=== PATIENT | female | born 1975 | race Caucasian/White ===

== ENCOUNTER 2021-10-10 10:55 | Emergency (ER) | payer MEDICARE ==
--- NOTE | 2021-10-10 11:07 | ERPHSYRPT ---
- History of Present Illness Time Seen by Provider: 10/10/21 11:07 Source: patient Exam Limitations: no limitations Physician History: This is a 46-year-old right-handed white female who accidentally cut herself while cutting licorice prior to arrival. Patient is diabetic. Patient has multiple medical problems. Patient arrives mild oozing from the laceration site. Timing/Duration: today Quality: burning, painful Severity: mild Location: hands (Right index finger) Possible Causes: other (Accidental laceration) Allergies/Adverse Reactions: Iodine and Iodide Containing Produc Allergy (Verified 10/10/21 11:28) latex Allergy (Verified 10/10/21 11:28) Penicillins Allergy (Verified 10/10/21 11:28) Home Medications: Fludrocortisone Acetate 0.1 mg PO DAILY 10/10/21 [History] Gabapentin [Neurontin] 1 ea TID 10/10/21 [History] Insulin Aspart [Insulin Aspart Penfill] 1 ea ACHS 10/10/21 [History] Pantoprazole Sodium [Protonix] 40 mg PO DAILY 10/10/21 [History] Vit E/B1/B6/FA/B12/Ala/Coq10 [Folic-K Capsule] 1 ea DAILY 10/10/21 [History] Vit E/B1/B6/FA/B12/Ala/Coq10 [Folic-K Capsule] 1 ea DAILY 10/10/21 [History] fentaNYL [Fentanyl] 1 ea UD 10/10/21 [History] Travel Risk - International Travel Have you traveled outside of the country in past 3 weeks: No - Coronavirus Screening Are you exhibiting any of the following symptoms?: No Close contact with a COVID-19 positive Pt in past 14-21 Days: No - Review of Systems Constitutional: No Symptoms Eyes: No Symptoms Ears, Nose, & Throat: No Symptoms Respiratory: No Symptoms Cardiac: No Symptoms Abdominal/Gastrointestinal: No Symptoms Genitourinary Symptoms: No Symptoms Musculoskeletal: No Symptoms Skin: Other (Laceration palmar aspect left index finger) Neurological: No Symptoms Psychological: No Symptoms Endocrine: No Symptoms Hematologic/Lymphatic: No Symptoms Immunological/Allergic: No Symptoms All Other Systems: Reviewed and Negative - Past Medical History Pertinent Past Medical History: Yes - Past Surgical History Past Surgical History: Yes - Nursing Vital Signs Nursing Vital Signs: Initial Vital Signs Temperature 98.0 F 10/10/21 11:14 Pulse Rate 91 H 10/10/21 11:14 Respiratory Rate 18 10/10/21 11:14 Blood Pressure 140/88 10/10/21 11:14 O2 Sat by Pulse Oximetry 98 10/10/21 11:14 Pain Scale Pain Intensity 0 - Physical Exam General Appearance: no apparent distress, alert, anxiety Eye Exam: PERRL/EOMI, eyes nml inspection Ears, Nose, Throat Exam: normal ENT inspection, moist mucous membranes Neck Exam: normal inspection, non-tender, supple Respiratory Exam: airway intact, No chest tenderness, No respiratory distress Gastrointestinal/Abdomen Exam: No tenderness Pelvic Exam: not done Rectal Exam: not done Back Exam: normal inspection, normal range of motion, No CVA tenderness, No vertebral tenderness Extremity Exam: normal range of motion, pelvis stable, lacerations (Left index finger 1 cm mild ooze from skin edge), other (Tendon intact neurovascularly intact) Neurologic Exam: alert, oriented x 3, cooperative, general operator II-XII nml as tested, normal mood/affect, nml cerebellar function, nml station & gait, sensation nml Skin Exam: laceration (See above) Lymphatic Exam: No adenopathy SpO2 Interpretation: normal O2 Delivery: Room Air Procedures - Laceration/Wound Repair Left Volar Finger Time of Procedure: 11:40 Wound Location: Left, hand (Palmar aspect index finger) Wound Length (cm): 1 Wound's Depth, Shape: superficial, linear (Horizontally oriented) Wound Explored: clean (No foreign body noted. Evaluation was performed to the base in a bloodless field) Irrigated: Yes Hibiclens Prep: Yes Anesthesia: 1% Lidocaine (1.5 cc) Volume Anesthetic (ccs): 1.5 Wound Repaired With: sutures Suture Size/Type: 4-0, prolene Number of Sutures: 3 Layer Closure?: No - Course Nursing assessment & vital signs reviewed: Yes Ordered Tests: Active Orders 24 hr Category Date Time Status Wound Care STAT Care 10/10/21 11:20 Active Medication Summary Discontinued Medications Generic Name Dose Route Start Last Admin Trade Name Freq PRN Reason Stop Dose Admin Bacitracin Zinc 0.9 gm 10/10/21 11:20 10/10/21 11:39 Bacitracin Packet 0.9 Gm Pckt TP 10/10/21 11:21 0.9 gm STAT ONE Administration Bacitracin Zinc Confirm 03/22/22 11:35 Bacitracin Packet 0.9 Gm Pckt Administered 10/10/21 11:36 Dose 1 gm .ROUTE .STK-MED ONE Diphtheria/Tetanus/Acell Pertussis 0.5 ml 10/10/21 11:20 10/10/21 11:40 Tdap --Diph,Pertuss(Acell),Tet Vac/Pf 0.5 Ml Vial IM 10/10/21 11:21 0.5 ml .ONCE ONE Administration Diphtheria/Tetanus/Acell Pertussis Confirm 10/10/21 11:35 Tdap --Diph,Pertuss(Acell),Tet Vac/Pf 0.5 Ml Vial Administered 10/10/21 11:36 Dose 0.5 ml IM .STK-MED ONE Lidocaine HCl Confirm 10/10/21 11:17 Lidocaine Hcl 1% 20 Ml Mdv 20 Ml Ml Administered 10/10/21 11:18 Dose 5 ml .ROUTE .STK-MED ONE Lidocaine HCl 5 ml 10/10/21 11:20 10/10/21 11:41 Lidocaine Hcl 1% 20 Ml Mdv 20 Ml Ml IJ 10/10/21 11:21 5 ml STAT ONE Administration - Progress Progress: improved Counseled pt/family regarding: diagnosis, need for follow-up - Departure Departure Disposition: Home Clinical Impression: Laceration of right index finger Condition: Stable Critical Care Time: No Additional Instructions: Keep pressure dressing in place until tomorrow evening on 10/11/2021. After that time, remove the dressing and wash the site with soap and water daily. Apply thin layer of antibiotic ointment to site each day after cleaning and replace bandage. Suture removal in 7 to 10 days.
[2021-10-10 11:15] VITALS: BP 140/88; PULSE 91; O2SAT 98
[2021-10-10] MEDS ORDERED: XYLOCAINE 1% HCL 20 ML MDV ONE (11:17)
[2021-10-10] MEDS ORDERED: BACIGUENT PACKET ONE (11:35)
[2021-10-10] MEDS ORDERED: Adacel Vial IM ONE (11:35)
[2021-10-10] MEDS: BACIGUENT PACKET TP ONE (11:39)
[2021-10-10] MEDS: Adacel Vial IM ONE (11:40)
[2021-10-10] MEDS: XYLOCAINE 1% HCL 20 ML MDV IJ ONE (11:41)
== END 2021-10-10 12:13 | disposition home or self-care (01) ==
LOC: ED 10:55
DX: S61.211A Laceration without foreign body of left index finger without damage to nail, initial encounter (principal); W26.0XXA Contact with knife, initial encounter; Y93.G1 Activity, food preparation and clean up; E11.9 Type 2 diabetes mellitus without complications; Z79.4 Long term (current) use of insulin; Z79.899 Other long term (current) drug therapy
CPT/HCPCS: 12001; 90471; 90715; 96372; 99284; A9270-GY